=== PATIENT | male | born 1975 | race African-American/Black ===

== ENCOUNTER 2021-02-09 14:04 | Outpatient (RCR) | payer OTHER, SELFPAY ==
[2021-02-09] MEDS: COVID-19 VACC, MRNA(PFIZER)/PF 30 MCG/0.3 ML SYRINGE IM (16:07)
[2021-03-02] MEDS: COVID-19 VACC, MRNA(PFIZER)/PF 30 MCG/0.3 ML SYRINGE IM (16:01)
== END 2021-02-09 23:59 ==
LOC: IMMUN 14:04
PROVIDERS: PCP Family Medicine; Visit Provider Family Medicine
DX: Z23 Encounter for immunization (principal)
CPT/HCPCS: 0001A; 0002A; 91300